=== PATIENT | female | born 2000 | race Caucasian/White ===

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

== ENCOUNTER 2022-03-19 20:06 | Emergency (ER) | payer BC ==
[~2022-03-19] VITALS: Ht 180.3 cm; Wt 68.0 kg
[2022-03-19 20:11] VITALS: BP_SYST 110
--- NOTE | 2022-03-19 20:15 | NUR ---
Patient triaged and placed in waiting room. VSS and patient appears in no acute distress at this time. Accompanied by FAMILY, awaiting available bed, and MD notified of need for MSE. -TIGIST BERNARD
--- NOTE | 2022-03-19 20:16 | NUR ---
WALKED IN C/O RIGHT LOWER MOUTH PAIN X1 WEEK, WORSENING. +PAIN WITH SWALLOWING, DENIES SOB. PT STATES SHE THOUGHT IT WAS A CANKER SORE BUT IT HAS GOTTEN WORSE. PT REPORTS TAKING MOTRIN AT HOME WITH NO RELIEF. 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 PT STATES U ABLE TO SEE A DENTIST UNTIL THE END OF THE WEEK. DENIES RECENT DENTAL PROCEDURES.
--- NOTE | 2022-03-19 21:18 | NUR ---
DR. DELANEY IN TRIAGE FOR MSE
[2022-03-19] MEDS ORDERED: PENI250T2 PO (21:21)
[2022-03-19] MEDS ORDERED: NAPR-690 PO (21:21)
[2022-03-19 21:30] VITALS: BP_SYST 110
--- NOTE | 2022-03-19 21:30 | NUR ---
Patient given written and verbal discharge instructions and verbalizes understanding. ER MD discussed with patient the results and treatment provided. Patient in stable condition. ID arm band removed. Rx of NAPROSYN, PENICILLIN V POTASSIUM given. Patient educated on pain management and to follow up with PMD. Pain Scale 8/10. Opportunity for questions provided and answered. Medication side effect fact sheet provided.
== END 2022-03-19 21:30 | disposition home or self-care (01) ==
LOC: SED 20:06
DX: K08.89 Other specified disorders of teeth and supporting structures (principal); Z79.899 Other long term (current) drug therapy
CPT/HCPCS: 99283